=== PATIENT | male | born 1975 | race Caucasian/White ===

== ENCOUNTER 2021-05-21 10:42 | Emergency (ER) | payer OTHER ==
[~2021-05-21] VITALS: Ht 175.3 cm; Wt 101.6 kg
[2021-05-21] MEDS ORDERED: LATUDA60 MG PO (10:54)
[2021-05-21] MEDS ORDERED: DICLOFENAC POTA50 MG PO (14:47)
== END 2021-05-21 14:55 | disposition home or self-care (01) ==
LOC: ER 10:42
DX: S00.33XA Contusion of nose, initial encounter (principal); S05.11XA Contusion of eyeball and orbital tissues, right eye, initial encounter; W01.198A Fall on same level from slipping, tripping and stumbling with subsequent striking against other object, initial encounter; Y93.89 Activity, other specified; Y92.488 Other paved roadways as the place of occurrence of the external cause; Y99.8 Other external cause status

== ENCOUNTER 2022-09-08 10:32 | Emergency (ER) | payer OTHER ==
[~2022-09-08] VITALS: Ht 175.3 cm; Wt 90.7 kg
[~2022-09-08 10:32] MED LIST: DICLOFENAC POTA50 MG PO; LATUDA60 MG PO
[2022-09-08] MEDS ORDERED: KETO10TA2 PO (15:26)
[2022-09-08] MEDS ORDERED: NORFLEX100MG PO (15:26)
== END 2022-09-08 15:39 | disposition home or self-care (01) ==
LOC: ER 10:32
DX: M54.9 Dorsalgia, unspecified (principal); M51.37 Other intervertebral disc degeneration, lumbosacral region

== ENCOUNTER 2025-05-29 10:05 | Emergency (ER) | payer OTHER ==
[~2025-05-29] VITALS: Ht 170.2 cm; Wt 86.2 kg
[~2025-05-29 10:05] MED LIST changes: +KETO10TA2 PO; +NORFLEX100MG PO
[2025-05-29 10:29] VITALS: BP 99/66; O2SAT 99
[2025-05-29] MEDS ORDERED: ORPHENADRINE CITRATE 30 MG/ML AMPUL ONE (10:57)
[2025-05-29] MEDS ORDERED: KETOROLAC TROMETHAMINE 30 MG VIAL ONE (10:57)
[2025-05-29] MEDS ORDERED: DEXAMETHASONE SODIUM PHOSPHATE 4 MG/ML VIAL ONE (10:57)
[2025-05-29] MEDS ORDERED: ORPHENADRINE CITRATE 30 MG/ML AMPUL IM ONE (11:00)
[2025-05-29] MEDS ORDERED: DEXAMETHASONE SODIUM PHOSPHATE 4 MG/ML VIAL IM ONE (11:00)
[2025-05-29] MEDS ORDERED: KETOROLAC TROMETHAMINE 30 MG VIAL IM ONE (11:00)
== END 2025-05-29 12:49 | disposition home or self-care (01) ==
LOC: ER 10:06
DX: M54.9 Dorsalgia, unspecified (principal); M54.50 Low back pain, unspecified; I10 Essential (primary) hypertension